=== PATIENT | female | born 1975 | race American Indian/Alaskan Native ===

== ENCOUNTER 2021-02-18 10:27 | Emergency (ER) | payer SELFPAY ==
--- NOTE | 2021-02-18 11:27 | Emergency Department Report ---
ED General Adult HPI - General Chief complaint: Abdominal Pain Stated complaint: SIDE STOMACH PAIN Time Seen by Provider: 02/18/21 11:15 Source: patient Mode of arrival: Ambulatory Limitations: No Limitations - History of Present Illness Initial comments: 45-year-old -[place] female patient presents with complaints of sudden onset of right sided abdominal pain x this morning. Patient states the pain is also on her right flank area. She denies any dysuria/hematuria/urinary frequency or decreased urination, stool changes, fever/chills/sweats, nausea/vomiting, or melena/hematochezia. She rates her pain as a 10/10 in severity. No history of kidney stones per patient. She also denies any dyspareunia, vaginal discharge, or vaginal bleeding. Past surgical history includes a myomectomy. Denies any other past medical history - Related Data Previous Rx's Medication Instructions Recorded Last Taken Type HYDROcodone/APAP 10-325 [[place] 1 each PO Q6HR PRN #15 tablet 02/18/21 Unknown Rx 10-325 mg TAB] Ondansetron [Zofran Odt] 4 mg PO Q8HR PRN #15 tab.rapdis 02/18/21 Unknown Rx Pantoprazole [Protonix] 40 mg PO QAM #14 tablet 02/18/21 Unknown Rx Tamsulosin [Flomax] 0.4 mg PO QDAY PRN #5 cap 02/18/21 Unknown Rx Allergies Allergy/AdvReac Type Severity Reaction Status Date / Time No Known Allergies Allergy Verified 02/18/21 10:47 ED Review of Systems ROS: Stated complaint: SIDE STOMACH PAIN Other details as noted in HPI Constitutional: denies: chills, diaphoresis, fever, malaise, weakness Cardiovascular: denies: chest pain Gastrointestinal: abdominal pain. denies: nausea, vomiting, diarrhea, constipation, hematemesis, melena, hematochezia Genitourinary: denies: dysuria, frequency, hematuria, discharge, abnormal menses, dyspareunia Musculoskeletal: back pain Skin: denies: change in color Neurological: denies: headache, numbness, paresthesias ED Past Medical Hx - Past Medical History Previous Medical History?: No - Surgical History Past Surgical History?: No - Medications Home Medications: Home Medications Medication Instructions Recorded Confirmed Last Taken Type HYDROcodone/APAP 10-325 [[place] 1 each PO Q6HR PRN #15 tablet 02/18/21 Unknown Rx 10-325 mg TAB] Ondansetron [Zofran Odt] 4 mg PO Q8HR PRN #15 tab.rapdis 02/18/21 Unknown Rx Pantoprazole [Protonix] 40 mg PO QAM #14 tablet 02/18/21 Unknown Rx Tamsulosin [Flomax] 0.4 mg PO QDAY PRN #5 cap 02/18/21 Unknown Rx ED Physical Exam - General Limitations: No Limitations General appearance: alert, other (Patient appears uncomfortable holding her right abdomen and back area) - Eye Eye exam: Present: normal appearance. Absent: scleral icterus - Neck Neck exam: Present: normal inspection - Respiratory Respiratory exam: Present: normal lung sounds bilaterally. Absent: respiratory distress - Cardiovascular Cardiovascular Exam: Present: regular rate, normal rhythm - GI/Abdominal GI/Abdominal exam: Present: soft, tenderness (Right upper quadrant, right lower quadrant, periumbilical, right), normal bowel sounds. Absent: distended, rigid - Neurological Exam Neurological exam: Present: alert, oriented X3 - Psychiatric Psychiatric exam: Present: normal affect, normal mood - Skin Skin exam: Present: warm, dry, intact, normal color. Absent: rash, diaphoretic ED Course Vital Signs 02/18/21 02/18/21 02/18/21 10:48 11:54 14:54 Temperature 98.6 F Pulse Rate 57 L Respiratory 16 18 18 Rate Blood Pressure 128/76 [Left] O2 Sat by Pulse 100 Oximetry 02/18/21 02/18/21 02/18/21 14:55 16:13 16:41 Temperature 97.5 F L Pulse Rate 49 L 68 Respiratory 18 18 14 Rate Blood Pressure 134/65 149/64 [Left] O2 Sat by Pulse 96 99 98 Oximetry 02/18/21 18:08 Temperature Pulse Rate 87 Respiratory Rate Blood Pressure 146/67 [Left] O2 Sat by Pulse 100 Oximetry ED Medical Decision Making - Lab Data Result diagrams: 02/18/21 11:51 02/18/21 16:12 Lab Results 02/18/21 02/18/21 02/18/21 Range/Units 11:51 11:51 11:51 WBC 14.3 H (4.5-11.0) K/mm3 RBC 4.85 (3.65-5.03) M/mm3 Hgb 13.6 (10.1-14.3) gm/dl Hct 40.7 (30.3-42.9) % MCV 84 (79-97) fl MCH 28 (28-32) pg MCHC 33 (30-34) % RDW 13.3 (13.2-15.2) % Plt Count 218 (140-440) K/mm3 Lymph % (Auto) Desk Maker [place] % (Auto) Desk Maker Eos % (Auto) Desk Maker Baso % (Auto) Desk Maker Lymph # (Auto) Desk Maker [place] # (Auto) Desk Maker Eos # (Auto) Desk Maker Baso # (Auto) Desk Maker Add Manual Diff Complete Total Counted 100 Seg Neutrophils % Desk Maker Seg Neuts % (Manual) 98.0 H (40.0-70.0) % Lymphocytes % (Manual) 1.0 L (13.4-35.0) % Monocytes % (Manual) 1.0 (0.0-7.3) % Nucleated RBC % Not Reportable Seg Neutrophils # Desk Maker Seg Neutrophils # Man 14.0 H (1.8-7.7) K/mm3 Band Neutrophils # 0.0 K/mm3 Lymphocytes # (Manual) 0.1 L (1.2-5.4) K/mm3 Abs React Lymphs (Man) 0.0 K/mm3 Monocytes # (Manual) 0.1 (0.0-0.8) K/mm3 Eosinophils # (Manual) 0.0 (0.0-0.4) K/mm3 Basophils # (Manual) 0.0 (0.0-0.1) K/mm3 Metamyelocytes # 0.0 K/mm3 Myelocytes # 0.0 K/mm3 Promyelocytes # 0.0 K/mm3 Blast Cells # 0.0 K/mm3 WBC Morphology Not Reportable Hypersegmented Neuts Not Reportable Hyposegmented Neuts Not Reportable Hypogranular Neuts Not Reportable Smudge Cells Not Reportable Toxic Granulation Not Reportable Toxic Vacuolation Not Reportable Dohle Bodies Not Reportable Pelger-Huet Anomaly Not Reportable Mani Rods Not Reportable Platelet Estimate Consistent w auto Clumped Platelets Not Reportable Plt Clumps, EDTA Not Reportable Large Platelets Not Reportable Giant Platelets Not Reportable Platelet Satelliting Not Reportable Plt Morphology Comment Not Reportable RBC Morphology Not Reportable Dimorphic RBCs Not Reportable Polychromasia Not Reportable Hypochromasia Not Reportable Poikilocytosis Not Reportable Anisocytosis Not Reportable Microcytosis Not Reportable Macrocytosis Not Reportable Spherocytes Not Reportable Pappenheimer Bodies Not Reportable Sickle Cells Not Reportable Target Cells Not Reportable Tear Drop Cells Not Reportable Ovalocytes Not Reportable Helmet Cells Not Reportable [place] Bodies Not Reportable [place] Rings Not Reportable [place] Cells Not Reportable Bite Cells Not Reportable Crenated Cell Not Reportable Elliptocytes Not Reportable Acanthocytes (Spur) Not Reportable Rouleaux Not Reportable Hemoglobin C Crystals Not Reportable Schistocytes Not Reportable Malaria parasites Not Reportable Peter Bodies Not Reportable Hem Pathologist Commnt No Sodium 129 L (137-145) mmol/L Potassium 4.6 (3.6-5.0) mmol/L Chloride 95.8 L (98-107) mmol/L Carbon Dioxide 19 L (22-30) mmol/L Anion Gap 19 mmol/L BUN 9 (7-17) mg/dL Creatinine 0.6 (0.6-1.2) mg/dL Estimated GFR > 60 ml/min BUN/Creatinine Ratio 15 % Glucose 128 H (65-100) mg/dL Calcium 9.3 (8.4-10.2) mg/dL Total Bilirubin 0.40 (0.1-1.2) mg/dL AST 35 (5-40) units/L ALT 20 (7-56) units/L Alkaline Phosphatase 81 (35-129) units/L Total Protein 7.8 (6.3-8.2) g/dL Albumin 4.6 (3.9-5) g/dL Albumin/Globulin Ratio 1.4 % Lipase 27 (13-60) units/L HCG, Qual Negative (Negative) Urine Color (Yellow) Urine Turbidity (Clear) Urine pH (5.0-7.0) Ur Specific [place] (1.003-1.030) Urine Protein (Negative) mg/dL Urine Glucose (UA) (Negative) mg/dL Urine Ketones (Negative) mg/dL Urine Blood (Negative) Urine Nitrite (Negative) Urine Bilirubin (Negative) Urine Urobilinogen (<2.0) mg/dL Ur Leukocyte Esterase (Negative) Urine WBC (Auto) (0.0-6.0) /HPF Urine RBC (Auto) (0.0-6.0) /HPF U Epithel Cells (Auto) (0-13.0) /HPF Ur Yeast w Hyphae /HPF 02/18/21 02/18/21 Range/Units 16:11 16:12 WBC (4.5-11.0) K/mm3 RBC (3.65-5.03) M/mm3 Hgb (10.1-14.3) gm/dl Hct (30.3-42.9) % MCV (79-97) fl MCH (28-32) pg MCHC (30-34) % RDW (13.2-15.2) % Plt Count (140-440) K/mm3 Lymph % (Auto) [place] % (Auto) Eos % (Auto) Baso % (Auto) Lymph # (Auto) [place] # (Auto) Eos # (Auto) Baso # (Auto) Add Manual Diff Total Counted Seg Neutrophils % Seg Neuts % (Manual) (40.0-70.0) % Lymphocytes % (Manual) (13.4-35.0) % Monocytes % (Manual) (0.0-7.3) % Nucleated RBC % Seg Neutrophils # Seg Neutrophils # Man (1.8-7.7) K/mm3 Band Neutrophils # K/mm3 Lymphocytes # (Manual) (1.2-5.4) K/mm3 Abs React Lymphs (Man) K/mm3 Monocytes # (Manual) (0.0-0.8) K/mm3 Eosinophils # (Manual) (0.0-0.4) K/mm3 Basophils # (Manual) (0.0-0.1) K/mm3 Metamyelocytes # K/mm3 Myelocytes # K/mm3 Promyelocytes # K/mm3 Blast Cells # K/mm3 WBC Morphology Hypersegmented Neuts Hyposegmented Neuts Hypogranular Neuts Smudge Cells Toxic Granulation Toxic Vacuolation Dohle Bodies Pelger-Huet Anomaly Mani Rods Platelet Estimate Clumped Platelets Plt Clumps, EDTA Large Platelets Giant Platelets Platelet Satelliting Plt Morphology Comment RBC Morphology Dimorphic RBCs Polychromasia Hypochromasia Poikilocytosis Anisocytosis Microcytosis Macrocytosis Spherocytes Pappenheimer Bodies Sickle Cells Target Cells Tear Drop Cells Ovalocytes Helmet Cells [place] Bodies [place] Rings Kh[place] Cells Bite Cells Crenated Cell Elliptocytes Acanthocytes (Spur) Rouleaux Hemoglobin C Crystals Schistocytes Malaria parasites Peter Bodies Hem Pathologist Commnt Sodium 136 L D (137-145) mmol/L Potassium 3.6 D (3.6-5.0) mmol/L Chloride 100.7 (98-107) mmol/L Carbon Dioxide 21 L (22-30) mmol/L Anion Gap 18 mmol/L BUN 8 (7-17) mg/dL Creatinine 0.9 (0.6-1.2) mg/dL Estimated GFR > 60 ml/min BUN/Creatinine Ratio 9 % Glucose 146 H (65-100) mg/dL Calcium 8.6 (8.4-10.2) mg/dL Total Bilirubin (0.1-1.2) mg/dL AST (5-40) units/L ALT (7-56) units/L Alkaline Phosphatase (35-129) units/L Total Protein (6.3-8.2) g/dL Albumin (3.9-5) g/dL Albumin/Globulin Ratio % Lipase (13-60) units/L HCG, Qual (Negative) Urine Color Colorless (Yellow) Urine Turbidity Clear (Clear) Urine pH 5.0 (5.0-7.0) Ur Specific [place] 1.040 H (1.003-1.030) Urine Protein <15 mg/dl (Negative) mg/dL Urine Glucose (UA) Neg (Negative) mg/dL Urine Ketones Tr (Negative) mg/dL Urine Blood Lg (Negative) Urine Nitrite Neg (Negative) Urine Bilirubin Neg (Negative) Urine Urobilinogen < 2.0 (<2.0) mg/dL Ur Leukocyte Esterase Neg (Negative) Urine WBC (Auto) 1.0 (0.0-6.0) /HPF Urine RBC (Auto) 49.0 (0.0-6.0) /HPF U Epithel Cells (Auto) < 1.0 (0-13.0) /HPF Ur Yeast w Hyphae Few /HPF - Radiology Data Radiology results: report reviewed CT ABDOMEN AND PELVIS WITH CONTRAST INDICATION / CLINICAL INFORMATION: acute right flank/lower abdominal pain OMNI 300 100 ML.. TECHNIQUE: Axial CT images were obtained through the abdomen and pelvis after 100 cc of Omnipaque [address] scans at this location are performed using CT dose reduction for ALARA by means of automated exposure control. COMPARISON: None available. FINDINGS: LOWER CHEST: No significant abnormality. AORTA / ARTERIES: No significant abnormality. IVC / VEINS: No significant abnormality. LYMPH NODES: No significant adenopathy. COLON: No significant abnormality. APPENDIX: Not seen. STOMACH / SMALL BOWEL: There is edematous thickening of the gastric wall at the level of the gastric antrum. There is pronounced enhancement of the gastric mucosa. PERITONEUM: No free fluid. No free air. No fluid collection. LIVER: No significant abnormality. GALLBLADDER: No significant abnormality. BILE DUCTS: No significant abnormality. PANCREAS: No significant abnormality. SPLEEN: No significant abnormality. ADRENALS: No significant abnormality. RIGHT KIDNEY / URETER: There is a 5 mm calcification at the proximal right ureter. There is moderate hydronephrosis. There is moderate perinephric fat stranding. LEFT KIDNEY / URETER: No significant abnormality. URINARY BLADDER: No significant abnormality. REPRODUCTIVE ORGANS: No significant abnormality. SKELETAL SYSTEM: No significant abnormality. ADDITIONAL FINDINGS: None. IMPRESSION: 1. There is a 5 mm calcification of the right proximal ureter which causes moderate hydronephrosis and moderate perinephric fat stranding. 2. There is edematous thickening of the gastric wall at the level of the gastric antrum. There is also pronounced enhancement of the gastric mucosa. This suggests an infectious versus inflammatory gastritis. 3. Nonvisualization of the appendix. - Medical Decision Making 45-year-old -[place] female patient presents with complaints of sudden onset of right sided abdominal pain x this morning. Patient states the pain is also on her right flank area. She denies any dysuria/hematuria/urinary frequency or decreased urination, stool changes, fever/chills/sweats, nausea/vomiting, or melena/hematochezia. She rates her pain as a 10/10 in severity. No history of kidney stones per patient. She also denies any dyspar eunia, vaginal discharge, or vaginal bleeding. Past surgical history includes a myomectomy. Denies any other past medical history CT shows 5 mm proximal right ureteral stone with moderate hydronephrosis of the right kidney. It also shows possible gastritis, however no epigastric tenderness to palpation is noted on exam and patient denies any GERD symptoms. White count is 14.3. Kidney function is normal. UA is negative for infection. There was some difficulty controlling patient's pain, however her pain is now controlled after morphine, Dilaudid, and Toradol. No further vomiting observed. Discussed patient in detail with Dr. Zeng-states patient is stable for discharge home. And pain meds given for home. Patient to follow-up with urology in 3 days. Discussed in detail signs and symptoms that should prompt immediate return to the emergency department with patient who verbalizes understanding. Her vitals are normal, she is well-appearing, she is stable for discharge home Critical care attestation.: If time is entered above; I have spent that time in minutes in the direct care of this critically ill patient, excluding procedure time. ED Disposition Clinical Impression: Kidney stone on right side, Gastritis Disposition: HOME / SELF CARE / HOMELESS Is pt being admited?: No Condition: Stable Instructions: Low-Purine Eating Plan, Gastritis, Adult, [id number], Kidney Stones, Abdominal Pain (ED) Prescriptions: Tamsulosin [Flomax] 0.4 mg PO QDAY PRN #5 cap PRN Reason: kidney stone passage HYDROcodone/APAP 10-325 [[place] 10-325 mg TAB] 1 each PO Q6HR PRN #15 tablet PRN Reason: Pain , Severe (7-10) Pantoprazole [Protonix] 40 mg PO QAM #14 tablet Ondansetron [Zofran Odt] 4 mg PO Q8HR PRN #15 tab.rapdis PRN Reason: nausea Referrals: KIMBER THORNE MD [Staff Physician] - 2-3 Days ESTHELA RAMOS MD [Staff Physician] - 2-3 Days Forms: Work/School Release Form(ED)
[2021-02-18] MEDS ORDERED: ONDANSETRON 4 MG/2 ML INJ IV ONE (11:34)
[2021-02-18] MEDS ORDERED: MORPHINE 4 MG/1 ML INJ IV ONE ×2 (11:34→14:37)
[2021-02-18 13:02] LABS: Alanine Aminotransferase 20 units/L (7-56); Albumin 4.6 g/dL (3.9-5); Blood Urea Nitrogen 9 mg/dL (7-17); Calcium 9.3 mg/dL (8.4-10.2); Hemolysis Index 158
[2021-02-18] MEDS ORDERED: SODIUM CHLORIDE 0.9% 1000 ML 1,000 ML IV ONE ×2 (13:07→17:21)
[2021-02-18 13:11] LABS: BUN/Creatinine Ratio 15
[2021-02-18 13:35] LABS: Hematocrit 40.7 % (30.3-42.9); Hemoglobin 13.6 gm/dl (10.1-14.3); Mean Corpuscular HGB Conc 33 % (30-34); Mean Corpuscular Volume 84 fl (79-97); Red Blood Count 4.85 M/mm3 (3.65-5.03); Red Cell Distribution Width 13.3 % (13.2-15.2)
[2021-02-18] MEDS: SODIUM CHLORIDE 0.9% 1000 ML 1,000 ML IV ONE ×2 (13:54→15:00)
[2021-02-18] MEDS ORDERED: KETOROLAC 30 MG/1 ML INJ IV ONE ×2 (14:37→15:35)
[2021-02-18] MEDS ORDERED: HYDROmorphone 1 MG/1 ML INJ IV ONE ×2 (14:38→17:21)
--- NOTE | 2021-02-18 15:13 | Cat Scan Report ---
CT ABDOMEN AND PELVIS WITH CONTRAST INDICATION / CLINICAL INFORMATION: acute right flank/lower abdominal pain OMNI 300 100 ML.. TECHNIQUE: Axial CT images were obtained through the abdomen and pelvis after 100 cc of Omnipaque [address] scans at this location are performed using CT dose reduction for ALARA by means of automated exposure control. COMPARISON: None available. FINDINGS: LOWER CHEST: No significant abnormality. AORTA / ARTERIES: No significant abnormality. IVC / VEINS: No significant abnormality. LYMPH NODES: No significant adenopathy. COLON: No significant abnormality. APPENDIX: Not seen. STOMACH / SMALL BOWEL: There is edematous thickening of the gastric wall at the level of the gastric antrum. There is pronounced enhancement of the gastric mucosa. PERITONEUM: No free fluid. No free air. No fluid collection. LIVER: No significant abnormality. GALLBLADDER: No significant abnormality. BILE DUCTS: No significant abnormality. PANCREAS: No significant abnormality. SPLEEN: No significant abnormality. ADRENALS: No significant abnormality. RIGHT KIDNEY / URETER: There is a 5 mm calcification at the proximal right ureter. There is moderate hydronephrosis. There is moderate perinephric fat stranding. LEFT KIDNEY / URETER: No significant abnormality. URINARY BLADDER: No significant abnormality. REPRODUCTIVE ORGANS: No significant abnormality. SKELETAL SYSTEM: No significant abnormality. ADDITIONAL FINDINGS: None. IMPRESSION: 1. There is a 5 mm calcification of the right proximal ureter which causes moderate hydronephrosis an d moderate perinephric fat stranding. 2. There is edematous thickening of the gastric wall at the level of the gastric antrum. There is als o pronounced enhancement of the gastric mucosa. This suggests an infectious versus inflammatory gastr itis. 3. Nonvisualization of the appendix. Signer Name: Marlon Barron DO Signed: 02/18/2021 3:09 PM Workstation Name: [id number]
[2021-02-18] MEDS ORDERED: METOCLOPRAMIDE 10 MG/2 ML INJ IV ONE (15:58)
[2021-02-18 17:00] LABS: Bilirubin,Urine NEG (Negative); Blood,Urine LG (Negative); Color,Urine Colorless (Yellow); Protein,Urine <15 mg/dL mg/dL (Negative); Urobilinogen,Urine < 2.0 mg/dL (<2.0)
[2021-02-18] MEDS ORDERED: TAMSULOSIN 0.4 MG CAP PO ONE (17:02)
[2021-02-18 17:09] LABS: BUN/Creatinine Ratio 9; Blood Urea Nitrogen 8 mg/dL (7-17); Calcium 8.6 mg/dL (8.4-10.2); Hemolysis Index 10
[2021-02-18] MEDS: diphenhydrAMINE 50 MG/ML VIAL IV ONE ×2 (17:48→18:51)
[2021-02-18 18:01] LABS: Platelet Estimate Consistent w Auto; Total Cells Counted 100
[2021-02-18 18:13] LABS: Platelet Count 218 K/mm3 (140-440)
[2021-02-18] MEDS ORDERED: diphenhydrAMINE 50 MG/ML VIAL ONE (18:49)
[2021-02-18 19:53] VITALS: BP 131/60
== END 2021-02-18 20:11 | disposition home or self-care (01) ==
LOC: ED 10:27
DX: N20.0 Calculus of kidney (principal); K29.70 Gastritis, unspecified, without bleeding
CPT/HCPCS: 36415; 74177; 80048; 80053; 81001; 83690; 84703; 85007; 85025; 96361; 96374; 96375; 96376; 99284; J1170; J1200; J2270; J2405; J2765; J7030; Q9967